=== PATIENT | female | born 1955 | race Caucasian/White ===

== ENCOUNTER 2023-06-17 09:55 | Outpatient (AMB) | payer MEDICARE, OTHER, SELFPAY ==
--- NOTE | 2023-06-17 09:58 | HO.NEPHOV_ITS ---
HPI HPI Comments History of Present Illness Details 67 yr old woman with Ovarian CA on Avast in and has HTN Here for follow up for HTN Renal fucnction has been stable PFSH Surgical History (Updated 06/17/23 @ 10:02 by Nickie Schwarz) History of hysterectomy Family History Mother Hypertension H/O heart bypass surgery Father FH: heart attack Social History Patient Tobacco Use Status: Never used Tobacco Vital Signs 06/17/23 09:59 Height 5 ft 8 in Weight 173 lb BMI 26.3 BP 120/80 Blood Pressure Location Lt brachial Position Sitting Pulse 69 Pulse Source Pulse Oximeter Pulse Oximetry (%) 97 Oxygen Delivery Method Room Air Physical Exam Vital Signs: Last Vital Signs Pulse 69 06/17/23 09:59 BP 120/80 06/17/23 09:59 Pulse Ox 97 06/17/23 09:59 Oxygen Delivery Method Room Air 06/17/23 09:59 BMI result Body Mass Index 26.3 Const General: comfortable Nutritional Appearance: well nourished Orientation/consciousness: patient oriented x3 HEENT Head: No normal to inspection Mouth: moist mucous membranes Neck Neck: Yes supple and Yes no JVD Resp Auscultation: clear to auscultation bilaterally, no rales and rub present Cardio Jugular venous distension: no JVD Palpation: no palpable S3 and no palpable S4 Heart sounds: no rubs GI Palpation (GI): Soft to palpation and nontender Percussion: No Fluid wave present General: Yes no CVA tenderness Back/Spine/Pelvis Back: no CVA tenderness Skin General skin exam: no rashes or lesions noted Neuro General: patient oriented x3 Extrem General: Yes no pedal edema and No clubbing Assessment & Plan Assessment & Plan (1) HTN (hypertension): Code(s): I10 - Essential (primary) hypertension Plan 67 yr old woman with well controlled HTN Renal function is stable Keep current regimen Low salt diet Monitor BP at home Orders: Orders Comprehensive Met. Panel 11 Months I10 - Essential (primary) hypertension Coding Level of Care Code Est Pt Level 3 (42358) Diagnoses HTN (hypertension) I10 Results Reviewed Results Reviewed: May 2023 Cr 0.7 K normal Nephrology Results: No Data to Display
[2023-06-17 09:59] VITALS: BP 120/80; PULSE 69; O2SAT 97; BMI 26.3
== END 2023-06-17 10:22 | disposition home or self-care (01) ==
LOC: HO.HKAS 09:56
PROVIDERS: PCP Internal Medicine; Visit Provider Internal Medicine Hypertension Specialist
DX: I10 Essential (primary) hypertension (principal)
CPT/HCPCS: 99213

== ENCOUNTER → 2023-06-17 09:55 | Outpatient (BNVA) | payer MEDICARE, OTHER, SELFPAY | PROVIDERS: PCP Internal Medicine; Visit Provider Internal Medicine Hypertension Specialist | DX: I10 Essential (primary) hypertension (principal) | CPT/HCPCS: 99212 ==

== ENCOUNTER 2024-06-14 13:00 | Outpatient (AMB) | payer MEDICARE, OTHER, SELFPAY ==
[2024-06-14 13:10] VITALS: BP 121/74; PULSE 75; O2SAT 96; BMI 23.3
--- NOTE | 2024-06-14 13:10 | HO.NEPHOV_ITS ---
Vital Signs 06/14/24 13:10 Height 5 ft 8 in Weight 153 lb BMI 23.3 BP 121/74 Blood Pressure Location Lt brachial Position Sitting Pulse 75 Pulse Source Pulse Oximeter Pulse Oximetry (%) 96 Oxygen Delivery Method Room Air Intake Visit Reasons: 1 year - in [place] office/ Conf [employer] Required: No Accompanied by: Self / Same As Patient Allergies cephalexin Allergy (Verified 06/14/24 13:13) Diarrhea chlorhexidine Allergy (Verified 06/14/24 13:13) Rash gabapentin Allergy (Verified 06/14/24 13:13) Hives latex Allergy (Verified 06/14/24 13:13) Dermatitis Butqvmo-[id number] Reductase Inhibitor Allergy (Verified 06/14/24 13:13) Unknown Sertaline Allergy (Uncoded 05/13/23 14:06) Diarrhea Medication List - Last Reconciled 06/14/24 by Abdiel Coley MD albuterol sulfate 90 mcg/actuation 2 puffs inhalation Q6H PRN alprazolam mg PO DAILY PRN amlodipine 5 mg PO DAILY benzonatate mg PO PRN bevacizumab (Avastin) Every 21 days calcium carbonate (Calcium 600) 1,200 mg PO DAILY cholecalciferol (vitamin D3) 10 mcg PO DAILY coenzyme Q10 (Co Q-10) 100 mg PO DAILY docusate sodium 100 mg PO BID duloxetine 90 mg PO DAILY levothyroxine (Levoxyl) 25 mcg PO DAILY loratadine (Claritin) 10 mg PO DAILY losartan 100 mg PO DAILY prochlorperazine maleate mg PO PRN propranolol 15 mg PO BID HPI Comments Details: 67 yr old woman with Ovarian CA on Avastin and has HTN Here for follow up for HTN Renal function has been stable 06/14/24 Overall doing well On Avastin since june 2023 Cr stable at 0.8 Urine protein excretion has increased. [facility] Surgical History History of hysterectomy Family History Mother Hypertension H/O heart bypass surgery Father FH: heart attack Social History Patient Tobacco Use Status: Never used Tobacco Physical Exam Vital Signs: Last Vital Signs Pulse 75 03/04/25 13:10 BP 121/74 06/14/24 13:10 Pulse Ox 96 06/14/24 13:10 Oxygen Delivery Method Room Air 06/14/24 13:10 BMI result Body Mass Index 23.3 Const General: comfortable Nutritional Appearance: well nourished Orientation/consciousness: patient oriented x3 HEENT Head: No normal to inspection Mouth: moist mucous membranes Neck Neck: Yes supple and Yes no JVD Resp Auscultation: clear to auscultation bilaterally and no rales Cardio Jugular venous distension: no JVD Palpation: no palpable S3 and no palpable S4 Heart sounds: no rubs GI Palpation (GI): Soft to palpation and nontender Percussion: No Fluid wave present General: Yes no CVA tenderness Back/Spine/Pelvis Back: no CVA tenderness Skin General skin exam: no rashes or lesions noted Neuro General: patient oriented x3 Extrem General: Yes no pedal edema and No clubbing Results Reviewed Results Reviewed: 05/30/24 BUN 24 Cr 0.8 K 4.5 Nephrology Results: No Data to Display Assessment & Plan Assessment & Plan (1) HTN (hypertension): Code(s): I10 - Essential (primary) hypertension Category: Medical (2) Proteinuria: Code(s): R80.9 - Proteinuria, unspecified Category: Medical Plan 68 yr old woman with well controlled HTN Renal function is stable Keep current regimen Low salt diet Monitor BP at home Ovarian CA on Avastin Proteinuria. Twenty-four urine collection showed urine protein excretion of 625 mg. Serum protein was low at 6.1. Currently she is on maximum dose of ARB for renal protection. Monitor urine protein excretion and maintain blood pressure less than 130/80. Orders: Orders Total Protein Urine Random 3 Months R80.9 - Proteinuria, unspecified UA and rflx microscopic 3 Months R80.9 - Proteinuria, unspecified Protein Electrophoresis, Serum 3 Months R80.9 - Proteinuria, unspecified Basic Metabolic Panel 1 Year I10 - Essential (primary) hypertension Creatinine Urine 3 Months R80.9 - Proteinuria, unspecified Coding Level of Care Code Est Pt Level 4 (71563) Diagnoses HTN (hypertension) I10 Proteinuria R80.9
--- OUTSIDE RECORDS SUMMARY | 2024-06-14 16:10 | XMS_ITS | Clinical Summary ---
Author Organization [facility] Address [address] [place] [address] Phone Care Team Providers Care Fire Support Specialist Name Role Phone Vasquez Gautam Primary Care Provider [phone] Allergies Active Allergy Reactions Criticality Noted Date Comments Cephalexin Diarrhea,Other (see comments) 07/23/2009 Other reaction(s): Other (See Comments) Chlorhexidine Rash Low 06/16/2019 Gabapentin Hives,Other (see comments) 07/19/2010 Other reaction(s): Other (See Comments) Latex Dermatitis 07/11/2019 Other Other (see comments) 07/23/2009 Other reaction(s): Other (See Comments) Latex Exam Gloves. Latex Exam Gloves. FLU (SPLT). Sertraline Diarrhea 09/09/2017 Statins Other (see comments) 07/12/2010 Medications ALPRAZolam (XANAX) 0.25 MG tablet Take 0.25 mg by mouth 1 (one) time each day if needed 06/02/2022 Active amLODIPine (NORVASC) 5 MG tablet Take 5 mg by mouth 1 (one) time each day 08/08/2022 Active benzonatate (TESSALON) 100 MG capsule 07/25/2022 Active DULoxetine (CYMBALTA) [address] capsule TAKE 1 CAPSULE BY MOUTH IN THE MORNING AND 2 IN THE EVENING 08/21/2022 Active losartan (COZAAR) 100 MG tablet Take 100 mg by mouth 1 (one) time each day 06/22/2022 Active prochlorperazin e (COMPAZINE) 10 MG tablet Take 10 mg by mouth every 6 (six) hours if needed 08/18/2022 Active propranolol (INDERAL) 10 MG tablet Take 15 mg by mouth in the morning and 15 mg in the evening. 05/28/2022 Active Bevacizumab (AVASTIN IV) Infuse into a venous catheter Active Active Problems Problem Noted Date Diagnosed Date Hypertensive disorder 08/27/2022 Overview (08/27/2022): Last Assessment & Plan: As mentioned she is on 3 agents which I feel are controlling her well at this time to double check we will have her create a blood pressure log with about 50 readings I will review it in 3 months or so. I have ordered her an echocardiogram. For now I do not want to adjust any of her medications Encounters Date Type Department Care Team Description 06/14/2024 Telephone [facility] [address] [place] [address] Lico Reyna MA from Last 3 Months Social History Tobacco Use Types Packs/Day Years Used Date Smoking Tobacco: Never Smokeless Tobacco: Never Tobacco Cessation:Counseling Given: Not Answered Alcohol Use Standard Drinks/Week Comments Not Currently 0 (1 standard drink = 0.6 oz pur e alcohol) Comments Unknown Sex and Gender Information Value Date Recorded Sex Assigned at Not on file Legal Sex Female 8:23 AM EST Gender Identity Not on file Sexual Orientation Not on file Last Filed Vital Signs Vital Sign Reading Time Taken Comments Blood Pressure 120/80 08/27/2022 1:00 PM EDT Pulse 75 08/27/2022 1:00 PM EDT Temperature - - Respiratory Rate - - Oxygen Saturation 97% 08/27/2022 1:00 PM EDT Inhaled Oxygen Concentration - - Weight - - Height - - Body Mass Index - - Plan of Treatment Health Maintenance Due Date Last Done Comments Breast Cancer Screening 1955 Pneumococcal Vaccine: 65+ Ye ars (1 of 2 - PCV) [birth year]10/1961 Colorectal Cancer Screening: Annual FOBT 2002 Colorectal Cancer Screening: Colonoscopy 2002 Colorectal Cancer Screening: Sigmoidoscopy 2002 Influenza Vaccine (#1) 2023 Hepatitis B Vaccine Aged Out No longe r eligible based on patient's age to complete this topic Insurance MEDICARE [facility] MEDICARE [facility] Care Teams Fire Support Specialist Relationship Specialty Start Date End Date Gautam Ovalle [address] [place] [address] PCP - General 05/05/22
--- OUTSIDE RECORDS SUMMARY | 2024-06-14 16:10 | XMS_ITS | Encounter Summary ---
Author Organization [facility], Address [address] [place] [address] Phone Care Team Providers Care Director Reactor Projects Name Role Phone Gautam Ovalle Primary Care Provider [phone] Encounter Details Date Type Department Care Team (Late st Contact Info) Description 06/14/2024 Telephone [facility], [address] [place] [address] Lico Reyna MA [address] [place] [address] Social History Tobacco Use Types Packs/Day Years Used Date Smoking Tobacco: Never Smokeless Tobacco: Never Alcohol Use Standard Drinks/Week Comments Not Currently 0 (1 standard drink = 0.6 oz pur e alcohol) Comments Unknown Sex and Gender Information Value Date Recorded Sex Assigned at Not on file Legal Sex Female 8:23 AM EST Gender Identity Not on file Sexual Orientation Not on file documented as of this encounter Miscellaneous Notes * Telephone Encounter - Lico Reyna MA - 06/14/2024 12:05 PM EST I spoke with Patricia who has an appt. With a Line Service Person in [place], I believe Dr. Coley whom she had seen in the past documented in this encounter Plan of Treatment Not on file documented as of this encounter Visit Diagnoses Not on filedocumented in this encounter Care Teams Director Reactor Projects Relationship Specialty Start Date End Date Gautam Ovalle [address] [place] [address] PCP - General 05/05/22 documented as of this encounter
== END 2024-06-14 13:30 | disposition home or self-care (01) ==
PROVIDERS: PCP Registered Nurse; Visit Provider Internal Medicine Hypertension Specialist
DX: I10 Essential (primary) hypertension (principal); R80.9 Proteinuria, unspecified
CPT/HCPCS: 99214

== ENCOUNTER → 2024-06-14 13:00 | Outpatient (BNVA) | payer MEDICARE, OTHER, SELFPAY | PROVIDERS: PCP Registered Nurse; Visit Provider Internal Medicine Hypertension Specialist | DX: I10 Essential (primary) hypertension (principal); R80.9 Proteinuria, unspecified | CPT/HCPCS: 99212 ==